=== PATIENT | male | born 1995 | race Two or more races ===

== ENCOUNTER 2020-02-22 00:51 | Emergency (ER) | payer MEDICAID ==
[2020-02-22] MEDS ORDERED: LIDOCAINE 1%/EPI 1:200,000/PF 10 ML VIAL INJ ONE (01:15)
[2020-02-22] MEDS ORDERED: PERTUSS(ACELL),DIPH,TET VAC/PF 0.5 ML VIAL IM ONE (01:15)
[2020-02-22] MEDS ORDERED: TETANUS/DIPHTHERIA TOXOID [ADULT] 0.5 ML VIAL IM ONE (01:15)
[2020-02-22 03:00] VITALS: BP 139/75
[2020-02-22] MEDS ORDERED: BACITRACIN 0.9 GM PACKET OINTMENT TP ONE (03:30)
== END 2020-02-22 03:30 | disposition home or self-care (01) ==
LOC: EMS 00:51
DX: S61.412A Laceration without foreign body of left hand, initial encounter (principal); F17.210 Nicotine dependence, cigarettes, uncomplicated; X99.1XXA Assault by knife, initial encounter; Y93.89 Activity, other specified; Y92.89 Other specified places as the place of occurrence of the external cause; Y99.8 Other external cause status
CPT/HCPCS: 12002; 73090; 73130; 90471; 90715; 99284; J3490; 90714

== ENCOUNTER 2020-03-03 12:11 | Emergency (ER) | payer MEDICAID ==
[~2020-03-03] VITALS: Ht 170.2 cm; Wt 109.1 kg
[2020-03-03 12:16] VITALS: BP 129/72
== END 2020-03-03 12:47 | disposition home or self-care (01) ==
LOC: EMS 12:15
DX: S61.411D Laceration without foreign body of right hand, subsequent encounter (principal); R03.0 Elevated blood-pressure reading, without diagnosis of hypertension; F17.210 Nicotine dependence, cigarettes, uncomplicated; X58.XXXD Exposure to other specified factors, subsequent encounter
CPT/HCPCS: Z7502

== ENCOUNTER 2020-08-07 13:56 | Emergency (ER) | payer MEDICAID ==
[~2020-08-07] VITALS: Ht 177.8 cm; Wt 113.6 kg
[2020-08-07] MEDS ORDERED: KETOROLAC TROMETHAMINE 30 MG/ML VIAL IM ONE (17:15)
[2020-08-07] MEDS ORDERED: DEXAMETHASONE SOD PHOS 4 MG/ML 5 ML VIAL IM ONE (17:15)
[2020-08-07 17:40] VITALS: BP 121/64
== END 2020-08-07 17:41 | disposition home or self-care (01) ==
LOC: EMS 13:57
DX: M79.621 Pain in right upper arm (principal); F17.210 Nicotine dependence, cigarettes, uncomplicated; F12.90 Cannabis use, unspecified, uncomplicated
CPT/HCPCS: 72125; 96372; 99284; J1100; J1885

== ENCOUNTER 2021-04-10 18:37 | Emergency (ER) | payer BC, MEDICAID, OTHER ==
[~2021-04-10] VITALS: Ht 170.2 cm; Wt 109.1 kg
[2021-04-10] MEDS ORDERED: BACITRACIN 0.9 GM PACKET OINTMENT TP ONE (19:45)
[2021-04-10] MEDS ORDERED: DOXYCYCLINE HYCLATE 100 MG TABLET PO ONE (19:45)
[2021-04-10 21:28] VITALS: BP 123/71
== END 2021-04-10 21:30 | disposition home or self-care (01) ==
LOC: EMS 18:44
DX: S80.12XA Contusion of left lower leg, initial encounter (principal); F17.210 Nicotine dependence, cigarettes, uncomplicated; F12.90 Cannabis use, unspecified, uncomplicated; W19.XXXA Unspecified fall, initial encounter; Y93.89 Activity, other specified; Y92.89 Other specified places as the place of occurrence of the external cause; Y99.8 Other external cause status
CPT/HCPCS: 99284; 73590-TC; 73610-TC; Z7502; Z7610